=== PATIENT | male | born 1995 | race Caucasian/White ===

== ENCOUNTER 2020-04-04 09:56 | Emergency (ER) | payer OTHER ==
[~2020-04-04] VITALS: Ht 175.3 cm; Wt 79.5 kg
[2020-04-04 10:09] VITALS: BP 127/78
--- NOTE | 2020-04-04 11:09 | RAD ---
Focused sonographic evaluation of the left groin 04/04/2020 INDICATION: Left inguinal pain, evaluate for hernia. COMPARISON STUDY: None Discussion: Focused ultrasound evaluation of left groin was performed for evaluation of inguinal becca ia. Static images are submitted to PACS. No inguinal hernia is identified. No other hernias seen. No focal fluid collection or other focal abnormality seen. Several normal-appearing lymph nodes are note d. IMPRESSION: No evidence of inguinal hernia or acute abnormality in the left groin is identified sonog raphically Electronically signed by: Jake Ramirez MD (04/04/2020 11:07 AM) [id number]
--- NOTE | 2020-04-04 11:20 | PHYS DOC ---
Past History Past Medical History: No Pertinent History, Other Additional Past Medical Histor: gastroenteritis Past Surgical History: Tonsillectomy Alcohol Use: Rarely Adult General Chief Complaint Chief Complaint: GROIN PAIN HPI HPI Patient is a pleasant 24-year-old male who presents for left groin pain. States onset was approximately 3 to 4 weeks ago without any known inciting event and/or trauma. Reports working at a [employer] and is standing mostly throughout the day which he attributes to the potential cause of pain. He has been seen and worked up by his primary care physician for this, states he had a testicular ultrasound performed 2 days ago that was negative for any abnormalities, specifically negative for any torsion. Patient reports he was not checked for hernia at that time. Admits this pain waxes and wanes and is in his superior left area of his suprapubic region. Reports flexion of his abdominal muscles causes pain to worsen. Reports waking up and performing abdominal crunch to get up when sharp focal nonradiating pain to his left suprapubic region presented concerning him yet again and so, he presented to our ER for evaluation. No fever, no systemic signs or symptoms of illness, no testicular pain, no penile pain or discharge, no concern for STDs Review of Systems Review of Systems Fourteen body systems of review of systems have been reviewed. See HPI for pertinent positives and negative responses, other claros all other systems are negative, non-pertinent or non-contributory Allergies Allergies Allergies Coded Allergies Type Severity Reaction Last Updated Verified amoxicillin Allergy Unknown hives 04/04/20 Yes clavulanic acid Allergy Unknown hives 04/04/20 Yes sulfamethoxazole Allergy Unknown hives 04/04/20 Yes trimethoprim Allergy Unknown hives 04/04/20 Yes Uncoded Allergies Type Severity Reaction Last Updated Verified PENICILLIN Allergy Unknown hives 04/04/20 Physical Exam Physical Exam Constitutional: Well developed, well nourished, no acute distress, non-toxic appearance. HENT: Normocephalic, atraumatic, bilateral external ears normal, oropharynx moist, no oral exudates, nose normal. Eyes: PERRLA, EOMI, conjunctiva normal, no discharge. Neck: Normal range of motion, no tenderness, supple, no stridor. Cardiovascular: Heart rate regular, sinus rhythm, no murmurs rubs or gallops Lungs & Thorax: Bilateral breath sounds clear to auscultation Abdomen: Bowel sounds normal, soft, no tenderness, no masses, no pulsatile masses. Nonsurgical abdomen, no peritoneal signs. exam performed, uncircumcised male with unremarkable penis without discharge, unremarkable testicles bilaterally without any palpable and/or visual abnormalities, cremaster reflex present, palpable inguinal bulge present when patient asked to cough when palpating in left inguinal canal, no palpable presence and/or abnormalities while at rest Skin: Warm, dry, no erythema, no rash. Back: No tenderness, no CVA tenderness. Extremities: No tenderness, no cyanosis, no clubbing, ROM intact, no edema. Neurologic: Alert and oriented X 3, grossly normal motor & sensory function, no focal deficits noted. Psychologic: Affect normal, judgement normal, mood normal. Current Patient Data Vital Signs Vital Signs Date Time Temp Pulse Resp B/P (MAP) Pulse Ox O2 Delivery O2 Flow Rate FiO2 04/04/20 10:09 98.1 55 16 127/78 (94) 99 Room Air EKG EKG [] Radiology/Procedures Radiology/Procedures Focused sonographic evaluation of the left groin 04/04/2020 INDICATION: Left inguinal pain, evaluate for hernia. COMPARISON STUDY: None Discussion: Focused ultrasound evaluation of left groin was performed for evalu ation of inguinal hernia. Static images are submitted to PACS. No inguinal hernia is identified. No other hernias seen. No focal fluid collection or other focal abnormality seen. Several normal-appearing lymph nodes are noted. IMPRESSION: No evidence of inguinal hernia or acute abnormality in the left groin is identified sonographically Electronically signed by: Jake Ramirez MD (04/04/2020 11:07 AM) [id number] Heart Score HEART Score for Chest Pain: HEART Score for Chest Pain Response (Comments) Value History Slighlty/Non-Suspicious 0 Age < 45 0 Risk Factors No Risk Factors 0 Total 0 Risk Factors: Risk Factors: DM, Current or recent (<one month) smoker, HTN, HLP, family history of CAD, obesity. Risk Scores: Risk Factors: DM, Current or recent (<one month) smoker, HTN, HLP, family history of CAD, obesity. Course & Med Decision Making Course & Med Decision Making Discussed with the patient all findings and diagnostic testing. I discussed most likely diagnosis of abdominal wall muscle strain versus nonstrangulated inguinal hernia. I discussed utility of CT imaging with patient but joint decision to defer given nonsurgical abdomen and good access to outpatient care. I stressed need for close outpatient follow-up to review today's ER visit. I advised him to discuss need for outpatient surgery referral for further classification of his left inguinal pain and determine next steps of care. Strict return precautions were also discussed at length with good understanding by patient. Patient voiced understanding and agreement with the plan. Patient knows to come back for repeat evaluation if concerning signs or symptoms present prior to outpatient follow-up. Hemodynamically stable, ambulatory and well- appearing at time of disposition. Dragon Disclaimer Dragon Disclaimer This electronic medical record was generated, in whole or in part, using a voice recognition dictation system. Departure Departure: Impression: Primary Impression: Left inguinal pain Disposition: DC HOME SELF CARE/HOMELESS Condition: STABLE Referrals: PCP,UNKNOWN (PCP) Additional Instructions: It is likely that you have experienced a sprain/strain your left lower abdominal wall muscle area versus nonstrangulated inguinal hernia. The best treatment for this injury is continued range of motion. A Rest, Ice, Compression, Elevation (RICE) strategy may also be helpful in the acute phase. Please continue to utilize Tylenol and/or ibuprofen for acute pain. I would advise you to call your primary care physician immediately after ER departure today to review ER findings and I would recommend he follow-up in outpatient setting with surgery for evaluation of potential symptomatic inguinal hernia that is nonstrangulated. You might require CT imaging of your abdomen pelvis at a future time. Nonetheless, if any concerning symptoms arise prior to outpatient follow-up please do not hesitate to come back for repeat evaluation. It was a pleasure to take care of you and I wish you the best going forward LJ FIELDS DO Apr 04, 2020 11:20
== END 2020-04-04 11:30 | disposition home or self-care (01) ==
LOC: ER 09:56
DX: R10.32 Left lower quadrant pain (principal); Z88.1 Allergy status to other antibiotic agents; Z88.2 Allergy status to sulfonamides
CPT/HCPCS: 76705; 99284

== ENCOUNTER 2021-03-06 15:05 | Emergency (ER) | payer OTHER ==
[~2021-03-06] VITALS: Ht 175.3 cm; Wt 79.5 kg
[2021-03-06 15:09] VITALS: BP 149/80
--- NOTE | 2021-03-06 15:52 | PHYS DOC ---
Past History Past Medical History: No Pertinent History, Other Additional Past Medical Histor: gastroenteritis Past Surgical History: Tonsillectomy Alcohol Use: Rarely General Adult EDM: Chief Complaint: UPPER EXTREMITY PAIN HPI: HPI: Patient is a 25 year old male who presents with left upper extremity paresthesias. Patient reports that 6 days ago, he was working out doing pull- ups. He reports that he went to pull himself up and felt a pain in his left e lbow. Since that time, he has experienced intermittent alternating hot and cold sensations as well as tingling down the medial aspect of his left forearm through to the pinky. He denies pain, swelling, rash, abrasion, weakness. He has no other complaints at this time. Review of Systems: Review of Systems: Constitutional: Denies fever or chills Respiratory: Denies cough or shortness of breath Cardiovascular: Denies chest pain or edema Musculoskeletal: See HPI Integument: See HPI Neurologic: See HPI Allergies: Allergies: Allergies Coded Allergies Type Severity Reaction Last Updated Verified amoxicillin Allergy Unknown hives 04/04/20 Yes clavulanic acid Allergy Unknown hives 04/04/20 Yes sulfamethoxazole Allergy Unknown hives 04/04/20 Yes trimethoprim Allergy Unknown hives 04/04/20 Yes Uncoded Allergies Type Severity Reaction Last Updated Verified PENICILLIN Allergy Unknown hives 04/04/20 Physical Exam: PE: Constitutional: Well developed, well nourished, no acute distress, non-toxic appearance. Cardiovascular: Heart rate regular rhythm, no murmur. Lungs & Thorax: Bilateral breath sounds clear to auscultation. Skin: Warm, dry, no erythema, no rash no abrasions, no lacerations, no evidence of puncture wound. Extremities: No tenderness, no cyanosis, no clubbing, ROM intact, no edema. Neurologic: Alert and oriented x4, strength 5/5 in bilateral upper extremitiesshoulder flexion/extension/abduction/abduction/internal rotation/external rotation, elbow flexion extension, wrist flexion/extension/abd uction/abduction, sensory function intact in bilateral upper extremitiesproprioception/fine touch, no focal deficits noted. Current Patient Data: Vital Signs: VS - Last 72 Hours, by Label Date Time Temp Pulse Resp B/P (MAP) Pulse Ox O2 Delivery O2 Flow Rate FiO2 03/06/21 15:09 97.6 71 16 149/80 (103) 100 Room Air Heart Score: C/O Chest Pain: No Course & Med Decision Making: Course & Med Decision Making Pertinent Labs and Imaging studies reviewed. (See chart for details) Patient denies traumatic injury to the affected limb. Discussed imaging options with the patient. Shared decision-making to defer x-ray films at this time. Patient understands that the nature of his pain is likely related to his nervous system. Patient was provided with orthopedic follow-up for the definitive management that he seeks. Patient understands and is agreeable to discharge plan. Dragon Disclaimer: Dragon Disclaimer: This electronic medical record was generated, in whole or in part, using a voice recognition dictation system. Departure Departure: Impression: Primary Impression: Ulnar nerve abnormality Qualified Codes: G56.22 - Lesion of ulnar nerve, left upper limb Disposition: HOME / SELF CARE / HOMELESS Condition: STABLE Referrals: PCP,NO (PCP) SOFIYA BARTLETT Jr. DO Patient Instructions: Ulnar Nerve Contusion with [facility] Additional Instructions: Please return to the emergency department if your symptoms worsen or you develop new symptoms, including pain or weakness. GUMARO GARCIA Mar 06, 2021 15:52
== END 2021-03-06 15:57 | disposition home or self-care (01) ==
LOC: ER 15:05
DX: G56.22 Lesion of ulnar nerve, left upper limb (principal); Z88.1 Allergy status to other antibiotic agents; Z88.2 Allergy status to sulfonamides
CPT/HCPCS: 99281